=== PATIENT | male | born 1950 | race Asian ===

== ENCOUNTER 2018-11-04 11:52 | Emergency (ER) | payer OTHER ==
[~2018-11-04] VITALS: Ht 182.9 cm; Wt 87.1 kg
[2018-11-04 12:04] VITALS: Ht 182.9 cm; Wt 87.1 kg
[2018-11-04 12:59] LABS: BASOPHIL % 0.4 % (0-2); PLATELET COUNT 216 x10^3mcL (130-400); RED CELL DISTRIBUTION WIDTH 13.7 % (11.5-14.5)
[2018-11-04 13:15] LABS: CALCIUM 7.9 mg/dL (8.5-10.1); CARBON DIOXIDE 26.6 mmol/L (21-32); CHLORIDE SERUM 107 mmol/L (98-107); GFR1 > 60 mL/min; GLUCOSE SERUM 162 mg/dL (74-106); POTASSIUM SERUM 3.8 mmol/L (3.5-5.1); SODIUM SERUM 140 mmol/L (136-145)
[2018-11-04 13:20] LABS: ALKALINE PHOSPHATASE 56 U/L (46-116); ALT/SGPT 22 U/L (16-63); AST/SGOT 18 U/L (15-37); BILIRUBIN TOTAL 0.7 mg/dL (0.20-1.00); LIPASE 46 IU/L (73-393); TOTAL PROTEIN, SERUM 6.5 g/dL (6.4-8.2)
[2018-11-04 13:22] LABS: ALBUMIN 2.9 g/dL (3.4-5.0)
[2018-11-04 15:30] VITALS: BP 153/96
== END 2018-11-04 15:30 | disposition home or self-care (01) ==
LOC: ED 11:52
PROVIDERS: Emergency Medicine
DX: R10.11 Right upper quadrant pain (principal); R31.9 Hematuria, unspecified; N28.1 Cyst of kidney, acquired; I10 Essential (primary) hypertension; Z88.0 Allergy status to penicillin
CPT/HCPCS: 36415; Q0092